=== PATIENT | male | born 1955 | race Caucasian/White ===

== ENCOUNTER 2018-03-23 14:33 | Emergency (ER) | payer OTHER ==
[~2018-03-23] VITALS: Ht 172.7 cm; Wt 90.7 kg
[~2018-03-23 14:33] MED LIST: CEPH500 PO; CIPR500 PO; HYDACE5 PO; IBUP400 PO; METF500 PO; OXYACE7.5T PO; PENVK500 PO; RXOXYACE PO; TRAM50 PO
[2018-03-23 16:01] LABS: BASOPHILS ABSOLUTE AUTO 0.04 K/mm3 (0.00-0.23); BASOPHILS PERCENT AUTO 1 % (0-2); EOSINOPHILS ABSOLUTE AUTO 0.18 K/mm3 (0.00-0.68); EOSINOPHILS PERCENT AUTO 3 % (0-6); Hematocrit 46.6 % (37.0-53.0); Hemoglobin 15.3 g/dL (13.5-17.5); IMMATURE GRAN ABSOLUTE AUTO 0.03 K/mm3 (0.00-0.10); IMMATURE GRAN PERCENT AUTO 0 % (0-1); LYMPHOCYTES ABSOLUTE AUTO 2.31 K/mm3 (0.84-5.20); LYMPHOCYTES PERCENT AUTO 33 % (21-46); MONOCYTES PERCENT AUTO 10 % (4-13); Mean Corpuscular HGB 30.4 pg (26.0-34.0); Mean Corpuscular HGB Conc 32.8 g/dL (31.5-36.5); Mean Corpuscular Volume 93 fL (80-100); Mean Platelet Volume 9.4 fL (9.1-12.4); NEUTROPHILS ABSOLUTE AUTO 3.66 K/mm3 (1.96-9.15); NEUTROPHILS PERCENT AUTO 53 % (41-73); Platelet Count 181 K/mm3 (150-400); RDW Coefficient Variation 12.6 % (11.7-14.2); Red Blood Cell Count 5.03 M/mm3 (4.30-5.90); White Blood Cell Count 6.92 K/mm3 (4.00-11.30)
[2018-03-23 16:20] LABS: Bun/Creatinine Ratio 14.4 (12.0-20.0); Calcium, Blood 8.8 mg/dL (8.5-10.1); Creatinine, Blood 1.32 mg/dL (0.60-1.20); Potassium, Blood 3.8 mmol/L (3.5-5.5)
[2018-03-23] MEDS ORDERED: Lopressor 50 mg50 MG PO (17:17)
[2018-03-23] MEDS ORDERED: Cleocin HCl300 MG PO (17:17)
== END 2018-03-23 17:24 | disposition home or self-care (01) ==
LOC: ER 14:33
PROVIDERS: Physician Assistant
DX: K02.9 Dental caries, unspecified (principal); I10 Essential (primary) hypertension; F10.10 Alcohol abuse, uncomplicated; F17.210 Nicotine dependence, cigarettes, uncomplicated
CPT/HCPCS: 36415; 70491; 80048; 85025; 96374; 96375; 99284-25; J1200; J2930; Q9967

== ENCOUNTER 2018-08-25 01:39 | Emergency (ER) | payer OTHER ==
[~2018-08-25] VITALS: Ht 172.7 cm; Wt 88.5 kg
[~2018-08-25 01:39] MED LIST changes: +Cleocin HCl300 MG PO; +Lopressor 50 mg50 MG PO
[2018-08-25] MEDS ORDERED: CEPH500 PO (02:38)
[2018-08-25] MEDS ORDERED: Bactrim Ds Tab1 EACH PO (02:38)
== END 2018-08-25 03:25 | disposition home or self-care (01) ==
LOC: ER 01:39
DX: L03.115 Cellulitis of right lower limb (principal); Z79.899 Other long term (current) drug therapy; F17.210 Nicotine dependence, cigarettes, uncomplicated
CPT/HCPCS: 99281; A9270

== ENCOUNTER 2019-01-25 09:25 | Inpatient (IN) | payer OTHER ==
[~2019-01-25] VITALS: Ht 172.7 cm; Wt 69.1 kg
[~2019-01-25 09:25] MED LIST changes: +Bactrim Ds Tab1 EACH PO
[2019-01-25 10:30] LABS: Base Excess Venous 0.8 mmol/L; Bicarbonate Venous 23.8 mmol/L (24.0-30.0); PCO2 Venous 50.4 mmHg (38-42); PO2 Venous 43.1 mmHg (38-42); pH Blood Venous 7.33 (7.34-7.37)
[2019-01-25 11:36] LABS: International Normalized Ratio 1.15
--- NOTE | 2019-01-25 11:40 | NUR ---
Echocardiogram completed.
[2019-01-25 13:03] LABS: Source, Urine Catheter
[2019-01-25 13:15] LABS: Bilirubin, Urine Neg (Neg); Blood, Urine Neg (Neg); Glucose Qualitative, Urine 3+ (Neg); Ketones, Urine Neg (Neg); Leukocyte Esterase, Urine Neg (Neg); Nitrite, Urine Neg (Neg); Protein, Urine 3+ (Neg); Specific Gravity, Urine 1.025 (1.003-1.022); Urobilinogen, Urine NORM (Normal)
[2019-01-25 13:31] LABS: U Amphetamine Screen DETECTED; U Barbituate Screen Not Detected; U Benzodiazapine Screen Not Detected; U Buprenorphine Screen Not Detected; U Cannabinoids Screen Not Detected; U Cocaine Screen Not Detected; U Methadone Screen Not Detected; U Methamphetamine Screen DETECTED; U Opiates Screen Not Detected; U Oxycodone Screen Not Detected; U Phencyclidine Screen Not Detected; U Propoxyphene Screen Not Detected
[2019-01-25 13:36] LABS: Albumin, Blood 3.3 g/dL (3.4-5.0); Albumin/Globulin Ratio 1.1 (0.8-1.8); Bilirubin, Total 0.8 mg/dL (0.1-1.0); Bun/Creatinine Ratio 26.1 (12.0-20.0); Calcium, Blood 8.4 mg/dL (8.5-10.1); Creatinine, Blood 1.42 mg/dL (0.60-1.20); Globulin, Blood 2.9 g/dL (2.2-4.0); Potassium, Blood 4.9 mmol/L (3.5-5.5); Total Protein, Blood 6.2 g/dL (6.4-8.2)
[2019-01-25 13:39] LABS: Hematocrit 42.6 % (37.0-53.0); Hemoglobin 13.5 g/dL (13.5-17.5); Mean Corpuscular HGB 29.7 pg (26.0-34.0); Mean Corpuscular HGB Conc 31.7 g/dL (31.5-36.5); Mean Corpuscular Volume 94 fL (80-100); Mean Platelet Volume 10.9 fL (9.1-12.4); Platelet Count 170 K/mm3 (150-400); RDW Coefficient Variation 13.8 % (11.7-14.2); RDW Standard Deviation 46.1 fL (35.1-46.3); Red Blood Cell Count 4.54 M/mm3 (4.30-5.90); White Blood Cell Count 6.57 K/mm3 (4.00-11.30)
[2019-01-25 14:04] LABS: Appearance, Urine Hazy (Clear); Color, Urine Yellow (P-Yellow)
[2019-01-25 14:05] LABS: Amorphous Heavy (0-Heavy); Bacteria Few /hpf; Red Blood Cells, Urine 0-2 /hpf (0-2); Squamous Epithelial Cells Not Seen /hpf (Few); White Blood Cells, Urine 0-2 /hpf (0-5)
--- NOTE | 2019-01-25 14:56 | NUR ---
ADMIT PT REPORT RECEIVED. PT ARRIVED AWAKE AND ALERT. SON AT BEDSIDE. PT SOB, WEAK VOICE. DR MANCUSO HERE UPON ARRIVAL TO PCU 9. BARRETO PLACED AND BUMEX GIVEN PER DR MANCUSO DIRECTION. ALL OTHER MEDICATIONS TO BE HELD PER DIRECTION. CONTINUE POT.
--- NOTE | 2019-01-25 15:42 | NUR ---
POST ANGOGRAM PT RETURNED FROM [facility]. PT AWKAE AND ALERT. SR. SON AT BEDSIDE. RIGTH RADIAL TR BAND CD&I. CAP REFILL BRISK TO RIGHT FINGERS. PHLETH WAVEFORM INTACT. CONTINUE POT.
--- NOTE | 2019-01-25 16:02 | NUR ---
tr band site Right radial site cd&i. pheth waveform wnl. Right tatiana venius ite cd&i. No hematoma, swelling or tenderness noted. pp2+. Sons at bedside helping to remind pt not to lift his head. Placed a flat sheet over pt right knee and tuked under the mattress to remind pt to keep leg straight. Continue pot.
--- NOTE | 2019-01-25 17:27 | NUR ---
TR BAND REMOVED 2ML OF AIR FROM RIGHT RADIAL TR BAND. NO BLEEDING, SWELLING OR HEMATOMA NOTED. RIGHT GROINS ITE CD&I. CONTINUE POT.
--- NOTE | 2019-01-25 18:25 | NUR ---
TR BAND REMOVED 2ML AIR FROM BAND. 4ML TOTAL. SITE CD&I. DBP SLOWLY DECREASING. PT ALERT. TALKING CONSTANTLY WITH KIDS. WANTS CARROT JUICE. RIGHT GROIN SITE CD&I. PP 1+. CONTINUE POT.
--- NOTE | 2019-01-25 19:53 | NUR ---
ASSUMED CARE AT 1915. PATIENT ALERT . PATIENT BLOOD PRESSURE MONITORED. DENIES PAIN AT THE TIME. WILL CONTINUE TO MONITOR.
--- NOTE | 2019-01-25 20:30 | NUR ---
TR BAND SEE HEART FLOWSHEET
--- NOTE | 2019-01-26 01:45 | NUR ---
TR BAND DEFLATED
--- NOTE | 2019-01-26 02:45 | NUR ---
TR BAND REMOVED, CLEAN DRY INTACT. CLEANED WITH CHLORAPREP, SITE STARTED TO WEEP, ANDI DRESSING PLACE AT 0245. MUST BE REMOVED WITH 24HOUR OF PLACEMENT.
[2019-01-26 04:05] LABS: BASOPHILS ABSOLUTE AUTO 0.04 K/mm3 (0.00-0.23); BASOPHILS PERCENT AUTO 1 % (0-2); EOSINOPHILS ABSOLUTE AUTO 0.18 K/mm3 (0.00-0.68); EOSINOPHILS PERCENT AUTO 2 % (0-6); Hematocrit 41.9 % (37.0-53.0); Hemoglobin 13.5 g/dL (13.5-17.5); IMMATURE GRAN ABSOLUTE AUTO 0.03 K/mm3 (0.00-0.10); IMMATURE GRAN PERCENT AUTO 0 % (0-1); LYMPHOCYTES ABSOLUTE AUTO 1.65 K/mm3 (0.84-5.20); LYMPHOCYTES PERCENT AUTO 21 % (21-46); MONOCYTES PERCENT AUTO 13 % (4-13); Mean Corpuscular HGB 29.9 pg (26.0-34.0); Mean Corpuscular HGB Conc 32.2 g/dL (31.5-36.5); Mean Corpuscular Volume 93 fL (80-100); Mean Platelet Volume 10.2 fL (9.1-12.4); NEUTROPHILS ABSOLUTE AUTO 5.12 K/mm3 (1.96-9.15); NEUTROPHILS PERCENT AUTO 64 % (41-73); Platelet Count 175 K/mm3 (150-400); RDW Coefficient Variation 13.6 % (11.7-14.2); RDW Standard Deviation 45.7 fL (35.1-46.3); Red Blood Cell Count 4.52 M/mm3 (4.30-5.90); White Blood Cell Count 8.02 K/mm3 (4.00-11.30)
[2019-01-26 04:28] LABS: LDL/HDL RATIO 2.7; Very Low Density Lipoprot Chol 26 mg/dL (6-32)
[2019-01-26 04:29] LABS: Alanine Aminotransfer (ALT/SGP 51 U/L (12-78); Albumin, Blood 3.2 g/dL (3.4-5.0); Albumin/Globulin Ratio 1.1 (0.8-1.8); Alk Phos 108 U/L (50-136); Anion Gap 9 mmol/L (6-16); Aspartate Aminotrans (AST/SGOT 23 U/L (12-37); Bilirubin, Total 0.9 mg/dL (0.1-1.0); Blood Urea Nitrogen 35 mg/dL (8-24); Bun/Creatinine Ratio 23.6 (12.0-20.0); CHOL/HDL RATIO 4.6; CO2, Blood 28 mmol/L (21-32); Calcium, Blood 8.6 mg/dL (8.5-10.1); Chloride, Blood 99 mmol/L (98-108); Cholesterol 137 mg/dL (50-200); Creatinine, Blood 1.48 mg/dL (0.60-1.20); Globulin, Blood 2.8 g/dL (2.2-4.0); Glomerular Filtration Rate 51 (60-); Glucose, Blood 272 mg/dL (70-99); HDL Cholesterol 30 mg/dL (>39); Low Density Lipoprotein Chol 81 mg/dL (0-110); Potassium, Blood 4.6 mmol/L (3.5-5.5); Sodium, Blood 136 mmol/L (136-145); Triglycerides 130 mg/dL (30-160)
--- NOTE | 2019-01-26 06:04 | NUR ---
PATIENT SLIGHT AGITATED AND ANXIOUS PRIOR TO BEDTIME. REQUESTED SOMETHING TO HELP SLEEP. PATIENT HAVING DIFFICULT STAYING ASLEEP, WAKES UP CONFUSED, TRIED TO GET OUT OF BED TO URINATE, PT FORGOT HE HAD BARRETO INSERTED. REDIRECTED AND REMINDED PATIENT LINES AND TUBES AND THE NEED FOR THEM. PT STATED HE USUALLY DRINKS BEFORE GOING TO BED.. TR BAND REMOVED AND GROIN SITE CLEAR DRY INTACT. PT PRESENTS WITH SINGS OF SLEEP APNEA, PROVIDOR CALLED, O2 VIA NC AND NOCTURNAL O2 MONITOR IN PLACE. PT HAS HIGH URINE OUTPUT. NO OTHER ACUTE EVENTS WILL CONTINUE TO MONITOR.
--- NOTE | 2019-01-26 14:24 | NUR ---
Pt visit this afternoon. Pt resting in bed upon arrival. Pt's son at bedside. Pt is A&O and denies pain at this time. He does report some discomfort from occasional cramping in the legs. Pt denies dyspnea and axiety at this time. Listened as Pt discusses events in life leading up to his recent abuse of drugs and alcohol. Pt tearful at times during visit. Listened as Pt expresses frustrations towards his choices in life. Offered emotional support. Pt reports plan to turn his life arround. Pt reports no concerns at this time. Spoke with bedside RN Vernon and discussed case. Spoke with Dr Montano prior to Pt visit. Dr Montano reports Pt would benefit from simple therapeutic visits for now. Palliative Care will remain available.
--- NOTE | 2019-01-26 18:15 | NUR ---
SUMMARY NO ACUTE CHANGES NOTED THROUGH THE SHIFT. PT REMAINS A&O X4, CONTINUES TO DENY SOB/CP, VSS, RESP UNLABORED, ON ROOM AIR, O2 SATS >93%. CONTINUOS PULSE OX IN PLACE. PT'S SPEECH REMAINS GARBLED. FAMILY HAS BEEN AT THE BEDSIDE THROUGH THE DAY, THEY ASSIST WITH CARE. BARRETO REMAINS PATENT, DRAINING CLEAR YELLOW URINE. SINUS/S.TACH THROUGH THE DAY. RIGHT RADIAL/GROIN SITES WNL. CALL LIGHT IN REACH, WCJENNIFER AND REPORT TO NICHOLAS CURTIS.
--- NOTE | 2019-01-27 00:55 | NUR ---
ASSUMED CARE APPROXIMATELY 1900; PT ALERT; FAMILY AND VISITORS AT BEDSIDE; VSS; PT ON RA; O2 SATS >94; DENIES CHEST PAIN; DENIES NEEDS; RADIAL AND GROIN OP SITES WNL; PT TAKES GOWN OFF AND SEEMS SLIGHTLY JITTERY; BARRETO DRAINING YELLOW URINE; CALL LIGHT IN REACH; BED IN LOWEST POSITION; WILL CONTINUE TO MONITOR CLOSELY
[2019-01-27 03:54] LABS: BASOPHILS ABSOLUTE AUTO 0.04 K/mm3 (0.00-0.23); BASOPHILS PERCENT AUTO 1 % (0-2); EOSINOPHILS ABSOLUTE AUTO 0.17 K/mm3 (0.00-0.68); EOSINOPHILS PERCENT AUTO 2 % (0-6); Hematocrit 44.2 % (37.0-53.0); Hemoglobin 14.7 g/dL (13.5-17.5); IMMATURE GRAN ABSOLUTE AUTO 0.04 K/mm3 (0.00-0.10); IMMATURE GRAN PERCENT AUTO 1 % (0-1); LYMPHOCYTES ABSOLUTE AUTO 1.95 K/mm3 (0.84-5.20); LYMPHOCYTES PERCENT AUTO 23 % (21-46); MONOCYTES ABSOLUTE AUTO 1.25 K/mm3 (0.16-1.47); MONOCYTES PERCENT AUTO 15 % (4-13); Mean Corpuscular HGB 29.5 pg (26.0-34.0); Mean Corpuscular HGB Conc 33.3 g/dL (31.5-36.5); Mean Corpuscular Volume 89 fL (80-100); Mean Platelet Volume 10.3 fL (9.1-12.4); NEUTROPHILS ABSOLUTE AUTO 5.01 K/mm3 (1.96-9.15); NEUTROPHILS PERCENT AUTO 59 % (41-73); Platelet Count 198 K/mm3 (150-400); RDW Coefficient Variation 13.5 % (11.7-14.2); RDW Standard Deviation 43.3 fL (35.1-46.3); Red Blood Cell Count 4.99 M/mm3 (4.30-5.90); White Blood Cell Count 8.46 K/mm3 (4.00-11.30)
[2019-01-27 04:16] LABS: Albumin/Globulin Ratio 0.9 (0.8-1.8); Bilirubin, Total 0.9 mg/dL (0.1-1.0); Calcium, Blood 8.6 mg/dL (8.5-10.1); Creatinine, Blood 1.59 mg/dL (0.60-1.20); Globulin, Blood 3.4 g/dL (2.2-4.0); Magnesium, Blood 2.1 mg/dL (1.6-2.4); Potassium, Blood 4.1 mmol/L (3.5-5.5); Total Protein, Blood 6.4 g/dL (6.4-8.2)
--- NOTE | 2019-01-27 05:45 | NUR ---
SHIFT SUMMARY PT MOANED AND TURNED IN BED ON AND OFF THROUGH NIGHT; EAR PLUGS AND SLEEP MASK OFFERED AND PT TRIED BOTH; PT DID NOT WANT TV TURNED OFF; SLEPT WELL BETWEEN 0400 AND 0600; PT DENIES CHEST PAIN; DENIES HEADACHE; DENIES TREMORS; HOWEVER PT SEEMS JITTERY; REMOVED GOWN AND BLANKETS; FIGETS W/ BLANKET ENDS; COMPLIANT W/ CARE; CALL LIGHT IN REACH; BED IN LOWEST POSITION; WILL CONTINUE TO MONITOR UNTIL HAND OFF TO DAY SHIFT RN
--- NOTE | 2019-01-27 05:59 | NUR ---
UPDATE PT HAVING RUN OF SINUS TACH W/ HR UP TO 140'S PER WHOLESALER; PT SLEEPING W/ THIS RATE AND ASSYMPTOMATIC; WHEN PT ASKED HE DENIES NOTICING ANY CHANGE
--- NOTE | 2019-01-27 08:30 | NUR ---
Assumed Care Assumed care of pt at approx 0700; pt sitting in bed, pulling on lines and taking gown off. Pt difficult to redirect. CIWA of 8; 1mg ativan given per orders and pt resting comfortably. Dr. Montano in this AM at bedside, status changed to medical. Pt planned to have life vest fitting friday and possible D/C friday. Pt's son at bedside on and off this day; aware of updated plan of care. See shift assessment for detailed systems assessment. Pt with xiao, patent and draining. Cath care performed this AM. Pt is alert and oriented, able to use call light to make needs known; takes pills whole with water. Pt mentions to this RN "I want to go home" When asked to elaborate on request, pt states "I want to see my dog". Pt's son at bedside at this time, pt's son encouraging pt to stay; pt's son informed that he can bring in pt's dog for pt's comfort. Pt agreeable to stay and cooperative with plan of care No acute concerns to note at this time
--- NOTE | 2019-01-27 12:04 | NUR ---
MARY LOU Gross 1200 01/27/[address] SEN. WILL MONITOR FOR OUTPUT AND RETENTION.
--- NOTE | 2019-01-27 17:34 | NUR ---
Upon rounding, pt difficult to arrouse. breathing remains at 18 bpm, shallow but unchanged from initial assessment. Pt had visitor in this afternoon enouraging pt to stay and cooperate with care. fourth mate notified and MD called and made aware of change in status. Pt to be given narcan per MD orders. Holding off on transferring pt at this time. Nursing concrete paving supervisor aware and room 350 RN aware.
--- NOTE | 2019-01-27 17:54 | NUR ---
NARCAN given per orders. pt with improved alertness, sitting in bed, eating dinner.
--- NOTE | 2019-01-27 18:24 | NUR ---
Shift Summary Pt with events at noted in previous notes. Pt currently sitting in room, visiting with son and friends - room fully visualized and to remain open. pt is SBA, xiao d/c'd and pt voided. Pt denies pain, is currently alert and oriented, eating dinner post narcan administration per orders. Pt to transfer to room 350; awaiting med RN to call back at this time for report. With exception to sudden change in status as documented around 1700; no further concerns to note this shift. Pt required only 1 mg ativan today, PO librium scheduled has adequately covered pt's CIWA. Will continue to monitor.
--- NOTE | 2019-01-27 18:46 | NUR ---
Pt to be transferred to 350, all pt belongings with pt at this time.
[2019-01-28 05:56] LABS: BASOPHILS ABSOLUTE AUTO 0.04 K/mm3 (0.00-0.23); BASOPHILS PERCENT AUTO 1 % (0-2); EOSINOPHILS ABSOLUTE AUTO 0.21 K/mm3 (0.00-0.68); EOSINOPHILS PERCENT AUTO 3 % (0-6); Hematocrit 45.6 % (37.0-53.0); Hemoglobin 14.9 g/dL (13.5-17.5); IMMATURE GRAN ABSOLUTE AUTO 0.05 K/mm3 (0.00-0.10); IMMATURE GRAN PERCENT AUTO 1 % (0-1); LYMPHOCYTES ABSOLUTE AUTO 1.99 K/mm3 (0.84-5.20); LYMPHOCYTES PERCENT AUTO 25 % (21-46); MONOCYTES ABSOLUTE AUTO 1.14 K/mm3 (0.16-1.47); MONOCYTES PERCENT AUTO 14 % (4-13); Mean Corpuscular HGB Conc 32.7 g/dL (31.5-36.5); Mean Corpuscular Volume 89 fL (80-100); Mean Platelet Volume 10.1 fL (9.1-12.4); NEUTROPHILS ABSOLUTE AUTO 4.65 K/mm3 (1.96-9.15); NEUTROPHILS PERCENT AUTO 58 % (41-73); Platelet Count 200 K/mm3 (150-400); RDW Coefficient Variation 13.5 % (11.7-14.2); RDW Standard Deviation 43.9 fL (35.1-46.3); Red Blood Cell Count 5.14 M/mm3 (4.30-5.90); White Blood Cell Count 8.08 K/mm3 (4.00-11.30)
[2019-01-28 06:18] LABS: Albumin, Blood 2.8 g/dL (3.4-5.0); Albumin/Globulin Ratio 0.8 (0.8-1.8); Bilirubin, Total 0.7 mg/dL (0.1-1.0); Bun/Creatinine Ratio 22.2 (12.0-20.0); Calcium, Blood 8.6 mg/dL (8.5-10.1); Creatinine, Blood 1.85 mg/dL (0.60-1.20); Globulin, Blood 3.7 g/dL (2.2-4.0); Magnesium, Blood 2.2 mg/dL (1.6-2.4); Potassium, Blood 5.1 mmol/L (3.5-5.5); Total Protein, Blood 6.5 g/dL (6.4-8.2)
--- NOTE | 2019-01-28 06:27 | NUR ---
Shift Summary Patient slept well overnight. Son slept overnight and did help the patient eat a salad. Discussed limiting sugar and sodium in any food or beverages that are brought in for the patient. The patient did have some urinary urgency overnight, and didn't make it all the way to the bedside commode twice.
--- NOTE | 2019-01-28 18:51 | NUR ---
SHIFT SUMMARY AI ORIENTED TO PLACE AND YEAR, BUT NOT SITUATION. ALERT IN MORNING, VERY LETHARGIC AND DIFFICULT TO ROUSE FOR A CONVERSATION IN THE LATE MORNING. WOKE UP ENOUGH TO EAT LUNCH AND THEN GOT MORE LETHARGIC IN EARLY AFTERNOON. TALKED WITH SON, SOUNDS LIKE PT IS PRIMARY CAREGIVER FOR BED BOUND GIRLFRIEND AT HOME. PT IS INCONTINENT, NEEDS ASSISTANCE TO WALK, NOT ABLE TO STAY AWAKE TO DISCUSS INSULIN OR DEALING WITH DM AT HOME, HOW HE COOKS, ETC. GOES THROUGH PERIODS OF LETHARGY. PT EVAL DONE. OT TO BE DONE TOMORROW. LIFE VEST REP KATHI ROMO CAME WITH CHU, PH [phone].
--- NOTE | 2019-01-29 02:40 | NUR ---
PT SLIGHTLY ANXIOUS UNABLE TO BE REDIRECTED; ATIVAN 2MG IVP GIVEN, PT ON CAMERA AT THIS TIME WITH BED ALARM APPLIED.
--- NOTE | 2019-01-29 03:44 | NUR ---
PT SLIGHTLY ANXIOUS; BLADDER SCANNED FOR 54ML; FREQUENT REDIRECTION REQUIRED BY STAFF.
--- NOTE | 2019-01-29 04:17 | NUR ---
SHIFT SUMMARY: 63 Y/O MALE RESTED COMFORTABLY 3/4 OF SHIFT, OCCASIONAL ANXIOUS NOTED WITH ATIVAN 2MG IVP X 1 GIVEN WITH AFFECT NOTED; PT REQUIRES FREQUENT REDIRECTION AND ASSESSMENT BY NURSING STAFF; PTS RIGHT GROIN AND RIGHT WRIST SITES ARE OPEN TO AIR (DRESSING WERE SATURATED BY WATER AFTER SHOWERS EARLIER ON DAY SHIFT, THUS THIS NURSE REMOVED DRESSINGS) WITH SURROUNDING SKIN RIGHT GROIN BRUISED WITH NO HEMATOMA; ALERT TO PERSON ONLY, ABLE TO FOLLOW VERY SIMPLE VERBAL COMMANDS; PT WAS ABLE TO STAND, PIVOT AND TRANSFER BSC TO [facility] X 1 STANDBY ASSIST; PT HAS VERY POOR BALANCE; BED ALARM APPLIED, BED LOW POSITION WITH CALL LIGHT AT SIDE.
[2019-01-29 06:39] LABS: Bun/Creatinine Ratio 24.8 (12.0-20.0); Calcium, Blood 8.7 mg/dL (8.5-10.1); Creatinine, Blood 1.65 mg/dL (0.60-1.20); Magnesium, Blood 2.4 mg/dL (1.6-2.4); Potassium, Blood 4.4 mmol/L (3.5-5.5)
--- NOTE | 2019-01-29 07:22 | NUR ---
ASSUMED CARE OF PT- BEDSIDE REPORT COMPLETED WITH NIGHT RN HARMONY. PER REPORT PT HAS BECOME INCREASINGLY AGGITATED TOWARD THE END OF THE SHIFT. PT REMOVED TELE THREE TIMES IN THE LAST 25 MINUTES OF THE SHODER FILLER AND ONCE AFTER SHIFT CHANGE WAS COMPLETED. PER REPORT PT PULLED IV OUT, NEW 20G IV IN THE RIGHT FOREARM. CIWA SCORE IS A 12 AT CHANGE OF SHIFT. PT SEEME TO BE SLEEPING AND CALM, THEN HAS AN EPISODE OF AGGITATION FOR A MINUTE OR SO THEN RELAXES BACK TO SLEEP. WILL CALL PT FAMILY TO COME SIT WITH HIM IF POSSIBLE.
--- NOTE | 2019-01-29 10:43 | NUR ---
SPOKE TO DR MORALES ON NORMAL ROUNDS- PT RECIEVED METOPROLOL BUT NO OTHER PO MEDICATIONS. PT WAS BARELY ABLE TO SWALLOW THAT PILL HAD TO BE WOKE TWICE IN THE PROCESS OF TAKING THE PILL. PT HAD TO RECIEVE VERY SPECIFIC INSTRUCTIONS TO SWALLOW THE PILL. THEN HE WENT BACK TO SLEEP.
--- NOTE | 2019-01-29 12:40 | NUR ---
RECIEVED A CALL FROM TELE- PT HR HAS TOUCHED THE 150'S. PT HAS BEEN HAVING OCCASSIONAL TACHYCARDIA T/O HIS STAY HERE AND DR IS AWARE. SPOKE TO DR MORALES AND SHE ORDERED IV DIGOXIN. PT HR SUSTAINED IN THE 120-140 RANGE FOR 2 MINUTES THEN DROPPED BACK TO 90'S. CALLED DR MORALES. IV DIGOXIN NOT GIVEN DR AWARE PT SBP 98 AT THIS TIME. PLACED PT ON 2L O2 VIA NC D/T SATS 88%.
[2019-01-29 14:55] LABS: PO2 Arterial 59.9 mmHg (80-100); pH Blood Arterial 7.49 (7.35-7.45)
--- NOTE | 2019-01-29 15:12 | NUR ---
CALLED DR MORALES- 1430 PT IS HAVING APNEIC PERIODS LASTING UP TO 45 SECONDS. RT IN THE ROOM AT THE BEDSIDE. PT PLACED ON 2L NC EARLIER, NOW ON CONT BI-OX. PT REQUIRED STERNAL RUB TO WAKE FOR TRANSFER TO [facility] FOR HEAD CT. RT CONCERN WITH CARDIAC INVOLVEMENT (PT HAS BEEN HAVING TACHYCARDIA EPISODES ON AND OFF) PT MAY NEED A NON-INVASIVE VENT. THE APNEIC PERIODS DO NOT APPEAR TO BE CAUSED BY OBSTRUCTION PER RT AND NURSING STAFF. REQUEST TRANSFER TO PCU FOR INCREASED APNEA POSSIBLY REQUIREING MECHANICAL INTERVENTION. NEW ORDER RECIEVED FOR ABG. RT TOM AT THE BEDSIDE AND BRISEIDA ABG. CALLED DR RIVERA WITH ABG RESULT. PT TO STAY ON MEDICAL FLOOR ON 2L O2, CONT BIOX AND TELE. DR MORALES WILL DC SCHEDULED LIBRIUM. CALLED TELE PT HAS HAD NO FURTHER EPISODES OF TACHYCARDIA SINCE 1330 PER EMPLOYEE RELATIONS REPRESENTATIVE ALONDRA. WILL CTM.
--- NOTE | 2019-01-29 17:40 | NUR ---
SHIFT SUMMARY- PT ALLERT TO SELF ONLY. PT HAD SOME ANXIETY EARLIER THIS SHIFT AND WAS MEDICATED WITH PO LYBRIUM (SCHEDULED). AFTER THAT THE PT RELAXED AND WENT TO SLEEP APPEARED TO BE COMFORTABLE T/O THE DAY. PT HAD SOME APNEIC PERIODS (SEE PREVIOUS NOTES FOR DETAILS. PT DECIDED THIS EVENING THAT HE WANTED TO GO HOME AND IS NOW TRYING TO GET OUT OF BED, CALLED INVENTORY CONTROL ANALYST AND HAD HIM PLACED ON THE MONITORS FOR FALL RISK. PT STILL CONFUSED STILL HAVING PERIODS OF EXTENDED APNEA WHEN SLEEPING.
--- NOTE | 2019-01-29 20:55 | NUR ---
RESTING COMFORTABLY; SON AT SIDE.
--- NOTE | 2019-01-30 04:34 | NUR ---
SHIFT SUMMARY: 63 Y/O MALE RESTED COMFORTABLY FIRST 1/2 SHIFT; PT DID BECOME SLIGHTLY AGITATED WITH NURSING STAFF UNABLE TO REDIRECT (ATTEMPTING CLIMB OOB AND CONTINUOUSLY REMOVING TELEMETRY)--ATIVAN 2MG IVP GIVEN WITH PATIENT ABLE TO CALM DOWN; PT ALERT TO PERSON ONLY AND UNABLE TO FOLLOW SIMPLE VERBAL COMMANDS; SPEECH GARBLED; PT WEARING O2 AT 2L/M PER NASAL CANNULA AND CONTINUOUS PULSE OXIMETER AT 93%; TELEMETRY REFLECTS NSR WITH HEART RATE 92; DENIES PAIN OR NAUSEA; BED ALARM APPLIED, BED LOW POSITION WITH CALL LIGHT AT SIDE.
[2019-01-30 05:22] LABS: BASOPHILS ABSOLUTE AUTO 0.05 K/mm3 (0.00-0.23); BASOPHILS PERCENT AUTO 1 % (0-2); EOSINOPHILS ABSOLUTE AUTO 0.29 K/mm3 (0.00-0.68); EOSINOPHILS PERCENT AUTO 3 % (0-6); Hematocrit 49.5 % (37.0-53.0); Hemoglobin 15.5 g/dL (13.5-17.5); IMMATURE GRAN ABSOLUTE AUTO 0.04 K/mm3 (0.00-0.10); IMMATURE GRAN PERCENT AUTO 0 % (0-1); LYMPHOCYTES ABSOLUTE AUTO 2.12 K/mm3 (0.84-5.20); LYMPHOCYTES PERCENT AUTO 23 % (21-46); MONOCYTES PERCENT AUTO 18 % (4-13); Mean Corpuscular HGB 28.9 pg (26.0-34.0); Mean Corpuscular HGB Conc 31.3 g/dL (31.5-36.5); NEUTROPHILS ABSOLUTE AUTO 5.01 K/mm3 (1.96-9.15); NEUTROPHILS PERCENT AUTO 55 % (41-73); Platelet Count 197 K/mm3 (150-400); RDW Coefficient Variation 13.3 % (11.7-14.2); RDW Standard Deviation 45.3 fL (35.1-46.3); Red Blood Cell Count 5.37 M/mm3 (4.30-5.90); White Blood Cell Count 9.11 K/mm3 (4.00-11.30)
[2019-01-30 05:31] LABS: Mean Corpuscular Volume 92 fL (80-100)
[2019-01-30 05:58] LABS: Albumin, Blood 2.8 g/dL (3.4-5.0); Albumin/Globulin Ratio 0.6 (0.8-1.8); Bilirubin, Total 0.7 mg/dL (0.1-1.0); Bun/Creatinine Ratio 26.5 (12.0-20.0); Calcium, Blood 8.7 mg/dL (8.5-10.1); Creatinine, Blood 1.62 mg/dL (0.60-1.20); Globulin, Blood 4.4 g/dL (2.2-4.0); Magnesium, Blood 2.3 mg/dL (1.6-2.4); Potassium, Blood 4.7 mmol/L (3.5-5.5); Total Protein, Blood 7.2 g/dL (6.4-8.2)
--- NOTE | 2019-01-30 07:00 | NUR ---
ASSUMED CARE OF PT- REPORT COMPLETED WITH NIGHT RN HARMONY. PT NOT ORIENTED AT ALL. PER REPORT PT HAD A VEWS SCORE OF 12 AROUND 0230 AND WAS MEDICATED WITH IV ATIVAN. PT NOT HAVING EPISODES OF TACHYCARDIA BUT STILL HAVING SHALLOW FAST RESPIRATIONS WITH PAUSES.
--- NOTE | 2019-01-30 08:50 | NUR ---
MONITOR CALLED AND PT TRYING TO GET OUT OF BED BECOMING MORE AGGITATED. WILL ASSESS AND DO CIWA.
--- NOTE | 2019-01-30 09:15 | NUR ---
CIWA SCORE 7- PT CHANGED AND REPOSITIONED AND IS NOW UNRESPONSIVE DOES NOT WAKE TO STERNAL RUB. PUPILS FIXED AND PINPOINT. RESP RATE FAST AND SHALLOW. WILL CALL DR MORALES.
--- NOTE | 2019-01-30 09:30 | NUR ---
CALLED DR MORALES AND RECIEVED ORDER FOR PT TRANSFER TO PCU FOR CLOSER MONITORING. PT REMAINS A FULL CODE AND IS STILL HAVING IRRATIC BREATHING AND DOES NOT WAKE TO STERNAL RUB DOES NOT LOCALIZE TO PAIN. GLASSGOW COMA SCALE SCORE OF 7. WAITING FOR BED ASSIGNMENT.
--- NOTE | 2019-01-30 10:55 | NUR ---
PT TRANSFERRED FROM MEDICAL FLOOR. REPORT RECIEVED FROM LANA CURTIS. LANA CALLED PT'S SON TO LET HIM KNOW OF TRANSFER. PT EXHIBITING PERIODS OF TACHYCARDIA VS SHALLOW BREATHING. UNRESPONSIVE EXCEPT TO NOXIOUX STIMULI BUT THHEN GROANS AND MOVES ALL EXTREMITIES. DR MORALES WAS AT BEDSIDE, AWARE PT DID NOT RECIEVE ORAL MEDS THIS AM.
--- NOTE | 2019-01-30 11:00 | NUR ---
TRANSFER NOTE- PT TRANSFERED TO PCU 09. TELEPHONE REPORT GIVEN TO PEARL STRINGER TAMARA. RENE WEBER WAS CALLED AFTER TRANSFER WAS COMPLETED WITH AN UPDATE. PT STILL NOT RESPONDING TO VERBAL OR PHYSICAL STIMULUS.
--- NOTE | 2019-01-30 17:28 | NUR ---
SHIFT SUMMARY: PT HAS BEEN RESTING IN BED THIS SHIFT. OCCASIONALLY HAS KUSSMAUL RESPIRATIONS THAT DR PITTS FEELS IS NEURO RELATED. FAMILY HAS BEEN AT BEDSIDE THIS SHIFT. PT IS AWAKE AT THIS TIME EATING DINNER, AWAKE BUT CONFUSED. NO FURTHER CHANGES OR NEEDS THIS SHIFT.
--- NOTE | 2019-01-30 18:28 | NUR ---
2 MG ATIVAN GIVEN FOR CIWA 11 AND MRI TO BE DONE. MRI TRANSPORTER ARRIVED AND PT WAS STILL FIDGETING AND NOT FOLLOWING DIERECTION. CALL TO DR MORALES WHO STATES TO HOLD MRI TONIGHT AND REVIEW AGAIN TOMORROW. MRI AWARE
[2019-01-31 04:08] LABS: BASOPHILS ABSOLUTE AUTO 0.03 K/mm3 (0.00-0.23); BASOPHILS PERCENT AUTO 0 % (0-2); EOSINOPHILS PERCENT AUTO 3 % (0-6); Hematocrit 46.6 % (37.0-53.0); Hemoglobin 14.8 g/dL (13.5-17.5); IMMATURE GRAN ABSOLUTE AUTO 0.02 K/mm3 (0.00-0.10); IMMATURE GRAN PERCENT AUTO 0 % (0-1); LYMPHOCYTES ABSOLUTE AUTO 1.53 K/mm3 (0.84-5.20); LYMPHOCYTES PERCENT AUTO 21 % (21-46); MONOCYTES ABSOLUTE AUTO 1.44 K/mm3 (0.16-1.47); MONOCYTES PERCENT AUTO 20 % (4-13); Mean Corpuscular HGB Conc 31.8 g/dL (31.5-36.5); Mean Corpuscular Volume 91 fL (80-100); Mean Platelet Volume 10.1 fL (9.1-12.4); NEUTROPHILS PERCENT AUTO 55 % (41-73); Platelet Count 174 K/mm3 (150-400); RDW Coefficient Variation 13.1 % (11.7-14.2); RDW Standard Deviation 44.5 fL (35.1-46.3); Red Blood Cell Count 5.11 M/mm3 (4.30-5.90); White Blood Cell Count 7.22 K/mm3 (4.00-11.30)
[2019-01-31 04:35] LABS: Alanine Aminotransfer (ALT/SGP 100 U/L (12-78); Albumin, Blood 2.6 g/dL (3.4-5.0); Albumin/Globulin Ratio 0.6 (0.8-1.8); Alk Phos 144 U/L (50-136); Anion Gap 7 mmol/L (6-16); Aspartate Aminotrans (AST/SGOT 57 U/L (12-37); Bilirubin, Total 0.6 mg/dL (0.1-1.0); Blood Urea Nitrogen 47 mg/dL (8-24); Bun/Creatinine Ratio 37.3 (12.0-20.0); CO2, Blood 26 mmol/L (21-32); Chloride, Blood 102 mmol/L (98-108); Creatinine, Blood 1.26 mg/dL (0.60-1.20); Glomerular Filtration Rate >60 (60-); Glucose, Blood 191 mg/dL (70-99); Magnesium, Blood 2.3 mg/dL (1.6-2.4); Potassium, Blood 4.5 mmol/L (3.5-5.5); Sodium, Blood 135 mmol/L (136-145); Total Protein, Blood 6.6 g/dL (6.4-8.2)
--- NOTE | 2019-01-31 05:18 | NUR ---
SHIFT SUMMARY PT RESTLESS IN ROOM AT THIS TIME. PT CONTINUED TO CLIMB ON CIWA SCALES T/O NIGHT. PT REMAINED CONFUSED AND ALTERED T/O NIGHT. REQUIRING HIGHER DOSES OF ATIVAN PER EMAR. CIWA SCORES RANGED FROM 7-14 DURING SHIFT. PT CONTINUED TO ATTEMPT TO GET OUT OF BED, AND CONTINUED TO PULL AT LINES AND SP02 MONITOR. RESPIRATIONS CONTINUED TO FLUCUATE T/O NIGHT W/ APNIC PERIODS FOLLOWED BY LABORED HEAVY BREATHING. PT REMAINS ON 3L NC, BUT PULLS AT CANNULA CONSTANTLY. SATS BETWEEN 90-96% WHILE NC IN PLACE. DESATURATION NOTED WHEN PT REMOVES NC TO 86% W/ APNEA. PT INCONTINENT, ATTENDS IN PLACE REQUIRED CHANGING NEARLY EVERY HOUR. BED ALARM ON AND BSIDE RAILS UP FOR SAFETY. CALL LIGHT IS WITHIN REACH OF PT, PT UNABLE TO UTILIZE APPROPRIATLY.
[2019-01-31 06:07] LABS: HBSAG SCREEN Negative (Negative); HEP B CORE AB, TOT Negative (Negative); HEP C VIRUS AB <0.1 (0.0-0.9)
--- NOTE | 2019-01-31 07:30 | NUR ---
ASSUMED CARE: PT RESTING IN BED, BEGAN TO GET WRESTLESS WHICH APPEARS TO COINCIDE WITH NEED FOR ATTENDS CHANGE. RESPONDS TO PAIN BUT NOT SPEAKING TO STAFF, MOANS AND GROANS HEARD. PT NOTED TO HAVE IRREGULAR BREATHING PATTERN WITH SHALLOW RESPIRATIONS ALTERNATING WITH TACHYPNEA. BED ALARM ON
--- NOTE | 2019-01-31 08:41 | NUR ---
DISCUSSED PT WITH DR MORALES WHO SUGGESTS PREMEDICATING WITH HIGHER DOSE OF ATIVAN BEFORE MRI. PT CURRENTLY WRESTLESS IN BED BUT DROWSY AND NOT FOLLOWING DIRECTIONS. HOLDING TRAY FOR NOW AND DISCUSSED WITH DR MORALES THAT ORAL MEDS MAY NOT BE SAFE TO GIVE THIS AM.
[2019-01-31 10:06] LABS: HIV SCREEN 4TH GENERATION WRFX Non Reactive (Non Reactive)
--- NOTE | 2019-01-31 10:21 | NUR ---
PT VERY ANSY IN BED. ON ALL FOURS AT ONE POINT. MEDICATED WITH ATIVAN AND ZYPREXA PER DR MORALES SO THAT MRI CAN BE ATTEMPTED. STAFF SITTING AT BEDSIDE SUPERVISING AT THIS TIME.
--- NOTE | 2019-01-31 10:48 | NUR ---
PT TAKEN TO MRI AT THIS TIME. LIQUEFIER ACCOMPANYING.
--- NOTE | 2019-01-31 12:02 | NUR ---
DR MORALES MADE AWARE OF PT'S MRI RESULTS
--- NOTE | 2019-01-31 13:26 | NUR ---
PT'S SON ARRIVED, SITTING AT BEDSIDE. CALL TO DR MORALES SO SHE CAN GIVE THEM AN UPDATE. AWAITING RETURN CALL BACK
--- NOTE | 2019-01-31 14:19 | NUR ---
DR MORALES CAME TO SPEAK WITH PT'S SONS AND UPDATED THEM ON PT'S STATUS. THIS RN ALSO HAD DISCUSSION WITH SONS. DIRECTOR AUTOMOTIVE CONSULT REPLACED DUE TO NEW FINDINGS OF STROKE. SONS STATE PT LIVES WITH GIRLFRIEND WHO HAD STROKE WELL WHO WOULD BE UNABLE TO CARE FOR HIM. SONS' NUMBERS CONFIRMED SO THAT THEY CAN BE INVOLVED IN PLANNING. FAMILY AT BEDSIDE AT THIS TIME.
--- NOTE | 2019-01-31 14:49 | NUR ---
ECHOCARDIOGRAM COMPLETE
--- NOTE | 2019-01-31 18:19 | NUR ---
SHIFT SUMMARY: PT RESTING IN BED. FAMILY WERE AT BEDSIDE MOST OF THE AFTERNOON. FRIEND AT BEDSIDE AT THIS TIME. DR MORALES STATED SHE WOULD DISCUSS ANTICOAGULATION WITH CARDIOLOGY. HAVE NOT HEARD FURTHER ON THIS. BED ALARM ON AT THIS TIME.
--- NOTE | 2019-01-31 19:32 | NUR ---
PT HAD A PERIOD OF WAKEFULNESS WHERE HE GOT UP ON THE MATTRESS ON HIS HANDS AND KNEES AND WAS ATTEMPTING TO STAND. SON WAS TRYING TO HELP HIM GET COMFORTABLE AND ADJUSTED HIS FOOT WHICH THEN CAUSED HIM TO BE ABLE TO GET ON HIS FEET BUT HE WAS NOT STRONG ENOUGH TO STAND UP. STAFF HELPED HIM ONTO HIS BACK ON MATTRESS WHERE HE REMAINS AT THIS TIME, SLEEPING. NIGHT RN TAKEN INTO ROOM TO SEE PT'S CURRENT POSITION.
--- NOTE | 2019-01-31 19:36 | NUR ---
ASSUMED CARE . MALE FAMILY MEMBER PRESENT BUT LEAVING. QUESTIONS ANSWERED AND REASSURED. PER AGREEMENT PER MD , NO O2 NO TELE. SALINE LOCK INTACT AND NOT DISTURBED. ON ALL 4'S REPORTED BY STAFF AND ALLOWED TO ADJUST BED POSITION IN LYING SUPINE HEAD AT FOOT OF BED. FLIPS COVERS OVER HEAD AND NOTED CYCLIC BREATHING A KUSMAUL BREATHING AND THEN MOMENTARY PERIODS OF APNEA. SEEMS TO AWAKEN SELF WITH RAPID PANTING AND GROANING. OPENS EYES TO VERBAL W/ SLURRED INCOMPREHENSIBLE SPEECH . WILL NOT OPEN EYES TO COMMAND . WILL GRASP AT BEDDING BUT NOT FOLLOW COMMAND FOR HAND SQUEEZE. PUSHES FEET AGAINST STAFF HANDS BUT NOT TO COMMAND. IRRITABLE STIMULUS AND WITH DRAWS OR PUSHES ME AWAY. PIN POINT PUPILS REACT EQUALLY. EYE TRACKING SEEM CONJUGATE BUT NOT TRACKING TO COMMAND OR PURPOSFUL GLANCE AT ANYTHING. YELLS OUT A FEW SLURRED WORDS . BED ALARM ON AT ALL TIMES. NO APPARENT PAIN ISSUES. WILL NOT BE WEARING BEDSIDE OXIMETER PER MD AWARENESS AND IN AGREEMENT PER REPORT FROM DAY RN
--- NOTE | 2019-02-01 02:00 | NUR ---
SUDDENLY RESISTANT TRYING TO CLIMB OVER RAIL. PULLING AND PUSHING AGAINST STAFF. PULLED OUT IV. FLIPPIN ALL OVER BED. ATIVAN IV GIVEN . AND CALMING EFFECT. ADJUSTS SELF IN BED FOR COMFORT.CHAIR ALARM IN BED AND VERY AFFECTIVE.MORE CLARITY IN SPEECH WORDS YELLED OUT.
--- NOTE | 2019-02-01 06:06 | NUR ---
SHIFT SUMMARY. MORE IMPULSIVE AND AWAKE WITH FLAILING LIMBS AND AND NEED OF ATIVAN AND EFFECTIVE FOR SHORT TIME. NO SLICK NEED AT THIS TIME. NO ACUTE CHANGE FROM ABOVE . MORE OBSERVANT WHEN SPOKEN TO BUT WOULD NOT FOLLOW COMMANDS . MOVES ALL EXTREMITIES WELL. BOLTING FORWARD IN BED AND THEN FALLS OFF TO SLEEP/ ALARMS ON AT ALL TIMES.
--- NOTE | 2019-02-01 07:30 | NUR ---
ASSUMED CARE OF PT. PT IS CONFUSED, NOT FOLLOWING COMMANDS. PT IS CLIMBING OUT OF BED. BED ALARM IS ON.
--- NOTE | 2019-02-01 08:00 | NUR ---
PT IS SLEEPING AT THIS TIME.
--- NOTE | 2019-02-01 10:00 | NUR ---
PT IS AWAKE AT THIS TIME. ASKING FOR WATER. PT WAS ABLE TO TOLERATE VERY WELL.
--- NOTE | 2019-02-01 12:45 | NUR ---
PT WOKE UP WITH GARBLED SPEECH. NOTED TO BE PULLING CORDS, IVS. PT IS VERY STRONG. PT IS DISORIENTED. AFEBRILE. ATIVAN 2 MG WAS GIVEN.
--- NOTE | 2019-02-01 13:03 | NUR ---
Spiritual care visit conducted. Patient is lying in bed and minimally responsive. Patient doesn't say much just and only a few grunts. He was, however very clear in saying, "Yes" when I asked if I could pray for him. I gladly provided prayer. I will continue to remain available to patient and family.
--- NOTE | 2019-02-01 13:10 | NUR ---
DR. GONZALES AT BEDSIDE, UPDATED HER OF PT'S STATUS.
--- NOTE | 2019-02-01 15:14 | NUR ---
Pt visit this afternoon. Pt resting in bed with his eyes closed and has SLICK Vest on. Pt appears comfortable with no S/S of distress at this time. This RN did not disturb Pt and allowed for continued rest. Spoke with Dr Burgess and discussed case. Spoke with bedside EVER Barrientos and admission discharge rn Inocencia. Earlier today Pt became combative and wendy gomez was called. Palliative Care will F/U when Pt's son is visiting.
--- NOTE | 2019-02-01 17:37 | NUR ---
SHIFT SUMMARY: PT'S SISTER AND BROTHER AT BEDSIDE. UPDATED THEM OF PT'S STATUS. PT HAS BEEN TRYING TO GET OUT OF BED. ANSWERS CORRECTLY AT TIMES BUT MOST OF THE TIME PT IS CONFUSED. GARBLED SPEECH. AFEBRILE. DR. GONZALES WAS NOTIFIED REGARDING PT'S ELEVATED BLOOD PRESSURE. SHE WAS ALSO NOTIFIED REGARDING PT'S SLEEP APNEA AND THAT O2 SATURATION GO LOW 83% ON ROOM. ORDERS RECEIVED FROM DR. GONZALES.
--- NOTE | 2019-02-01 18:39 | NUR ---
Pt visit this evening. Family at [facility]. Pt's son Navi, brother Dick, and sister Janelle present during visit. Pt resting in bed and is awake briefly during visit. Speach garbled and difficult to understand. Pt's eyes are closed for much of the visit and appears to be resting comfortably. Answered questions and concerns. Educated on the possibility of Pt's quality of life changing. Discussed plan for OT, PT, and ST to evaluate and treat. Discussed the possibility of Pt needing jail care or 24 hour caregivers if Pt does not improve. Son Navi V/U. Family appears receptive of visit and is understanding it may take sometime before knowing if there will be any improvement. Navi reports he is prepared to make decisions if needed and will as recommended. Family expresses appreciation of visit. Palliative Care will remain available.
--- NOTE | 2019-02-01 19:57 | NUR ---
ASSUMED CARE OF PT AT 1900 WITH REPORT FROM GURDEEP CURTIS, PT LETHARGIC IN BED WITHLIMITED EYE CONTACT AND RESPONSE TO QUESTIONS. FOLLOWS SOME COMMANDS, APPEARS TO HAVE RIGHT FACIAL DROOP AND SLIGHT TONGUE DEVIATION. FAMILY ENETERS ROOM DURING INITIAL ASESSMENT, 6-7 PEOPLE. PATIENT SLURRING SPEECH, UNCLEAR WORDS, AND LETHARGIC, BUT IS MAKING SOME OF HIS NEEDS KNOWN. NOT PARTICULARLY AGITATED AT THIS TIME, WILL ASSESS SWALLOWING CAPABILITY IN ANTICIPATION OF ORAL BEDTIME MEDS. wILL CONTINUE TO MONITOR
--- NOTE | 2019-02-01 21:30 | NUR ---
PATIENT UNABLE TO TAKE ORAL MEDS - UNSAFE: NO GUARANTEE OF SWALLOW. SPEECH INCOMPREHENSIBLE, AGITATION INCREASING. WILL MEDICATE PER EMAR, IV MEDS ONLY. WILL CONTINUE TO MONITOR
--- NOTE | 2019-02-01 22:45 | NUR ---
PATIENT AGITATED, PULLING AT RESTRAINTS. IT APPEARED THAT PATIENT WANTED TO TURN TO HIS RIGHT SIDE. WHEN QUESTIONED, PATIENT GRUNTED AFFIRMATIVE. WHEN WRIST RESTRAINT WAS LOOSENED AND PATIENT ASSISTED TO RIGHT SIDE, HE PULLED OUT HIS IV BEFORE WRIST RESTRAINT COULD BE RE-SECURED. APPEARS TO BE ACCIDENTAL, FOR ONCE ON RT SIDE PATIENT IS RESTING PEACEFULLY, NO AGITATION, NO PULLING AT RESTRAINTS. WILL START NEW IV AND CONTINUE TO MONITOR. PT SLEEPING SOUNDLY, SNORING LIGHTLY
--- NOTE | 2019-02-01 23:22 | NUR ---
PATIENT IS SLEEPING PEACEFULLY, AND THERE IS CURRENTLY NO IV FOR HIM TO PULL OUT, WRIST RESTRAINT IS LEFT ATTACHED TO HIS LEFT WRIST, BUT NOT ATTACHED TO BED FRAME, ALLOWING FOR FREE MOVEMENT AT THE MOMENT
--- NOTE | 2019-02-02 04:02 | NUR ---
PATIENT PREFERS TO SLEEP ON RIGHT SIDE. ANY ATTEMPT TO PUT HIM ON HIS BACK, OR ON LEFT SIDE RESULTS IN HIS AGITATION. POSITIONED ON RIGHT SIDE, PATIENT SLEEPS AND DOES NOT NEED MEDICATED FOR AGITATION. NEW IV ESTABLISHED WITHOUT ISSUE. PATIENT SLEEPING ON RIGHT SIDE, POSY VEST AND SOFT WRIST RESTRANT ON LEFT WRIST IN PLACE. RESTRAINTS HAVE BEEN NECESSARY THE MOMENT PATIENT AWAKES, THIS SHIFT. WILL CONTINUE TO MONITOR
[2019-02-02 04:34] LABS: BASOPHILS ABSOLUTE AUTO 0.05 K/mm3 (0.00-0.23); BASOPHILS PERCENT AUTO 1 % (0-2); EOSINOPHILS ABSOLUTE AUTO 0.19 K/mm3 (0.00-0.68); EOSINOPHILS PERCENT AUTO 4 % (0-6); Hematocrit 47.5 % (37.0-53.0); Hemoglobin 14.9 g/dL (13.5-17.5); IMMATURE GRAN ABSOLUTE AUTO 0.02 K/mm3 (0.00-0.10); IMMATURE GRAN PERCENT AUTO 0 % (0-1); LYMPHOCYTES ABSOLUTE AUTO 1.34 K/mm3 (0.84-5.20); LYMPHOCYTES PERCENT AUTO 26 % (21-46); MONOCYTES ABSOLUTE AUTO 0.94 K/mm3 (0.16-1.47); MONOCYTES PERCENT AUTO 18 % (4-13); Mean Corpuscular HGB 28.7 pg (26.0-34.0); Mean Corpuscular HGB Conc 31.4 g/dL (31.5-36.5); Mean Corpuscular Volume 92 fL (80-100); Mean Platelet Volume 9.7 fL (9.1-12.4); NEUTROPHILS ABSOLUTE AUTO 2.69 K/mm3 (1.96-9.15); NEUTROPHILS PERCENT AUTO 51 % (41-73); Platelet Count 212 K/mm3 (150-400); RDW Coefficient Variation 13.2 % (11.7-14.2); RDW Standard Deviation 44.9 fL (35.1-46.3); Red Blood Cell Count 5.19 M/mm3 (4.30-5.90); White Blood Cell Count 5.23 K/mm3 (4.00-11.30)
[2019-02-02 04:54] LABS: Albumin, Blood 2.7 g/dL (3.4-5.0); Anion Gap 8 mmol/L (6-16); Blood Urea Nitrogen 32 mg/dL (8-24); Bun/Creatinine Ratio 26.7 (12.0-20.0); CO2, Blood 24 mmol/L (21-32); Calcium, Blood 9.2 mg/dL (8.5-10.1); Chloride, Blood 107 mmol/L (98-108); Glomerular Filtration Rate >60 (60-); Glucose, Blood 132 mg/dL (70-99); Phosphorus, Blood 4.6 mg/dL (2.5-4.9); Potassium, Blood 4.2 mmol/L (3.5-5.5); Sodium, Blood 139 mmol/L (136-145)
--- NOTE | 2019-02-02 06:06 | NUR ---
SHIFT SUMMARY NO CHANGES LAST FEW HOURS. PATIENT SLEEPING ON RIGHT SIDE; ANY OTHER POSITION RESULTS IN AGITATION/RESTLESSNESS UNTIL REPOSITIONED RIGHT SIDE. NONVIOLENT RESTRAINTS ARE STILL IN PLACE THEY ARE NOT RESTRICTING TO HIM (PATIENT IS NOT GROSSLY CHANGING POSITION) AND THEY WILL MOST LIKELY BE NEEDED WHEN PATIENT AWAKES OR IS AWOKEN. NO ATIVAN NOR ANY OTHER MEDICATION NEEDED SINCE 2220 HRS. PATIENT IS BREATHING WITHOUT EFFORT, MAKES SMALL ADJUSTMENTS IN ARM AND LEG POSITIONS, AND HIS TABBED BRIEF IS CLEAN AND DRY. WILL CONTINUE TO MONITOR AND WILL PASS CARE AND REPORT TO ONCOMING SHIFT AT 0700. BED IS LOCKED AND LOW, CALL LIGHT W/IN REACH.
--- NOTE | 2019-02-02 13:20 | NUR ---
UPDATE WAS ABLE TO GO SIGNIFICANT TIME WITHOUT MEDICATING WITH ATIVAN FOR DESTRUCTIVE BEHAVIORS BUT PT WAS NO LONGER DISTRACTABLE AND WAS PULLING AT LINES, CRAWLING OUT OF BED BETWEEN RAILS DESPITE SLICK AND L WRIST RESTRAINT. ATIVAN GIVEN W/ MINIMAL AFFECT. PT GRABBING AT STAFF, SELF, AND WHEN GRABBING SLICK, PHYSICALLY RIPPING IT. SECURITY AND MULTIPLE STAFF MEMBERS TO ROOM TO SAFELY CONTROL PT. PALLIATIVE CARE TO ROOM AND PLANS TO CALL HOSPITALIST TO UPDATE AND ADJUST MEDS.
--- NOTE | 2019-02-02 14:03 | NUR ---
Pt back and forth from sitting up in bed and lying in bed. Security and charge histotechnologist Jodi present. Mittens are being placed on Pt. Pt became significantly agitated and was attempting to pull his [place]ington Vest off and rip out his IV. Called and spoke with Pt's son Navi and reported updated. Engaged in therapeutic discussion regarding goals of care. Discussed the possibility of needing IV nutrition. Discussed speech therapey keeping Pt NPO due to being too somnolant. Discussed if Pt's condition does not improve would Pt want feeding tube. Navi expresses appreciation of phone call and reports he will visit Pt this evening. Spoke with Dr Wells and discussed case. Dr Wells will order IV nutrition and increase Pt's Zyprexa from daily at bed time to BID. Spoke with bedside EVER Gant and discussed case. Palliative Care will remain available.
--- NOTE | 2019-02-02 17:54 | NUR ---
SHIFT SUMMARY PT WAS RESTFUL THIS MORNING WITH EASY DISTRACTION. BUT IN AFTERNOON, UNCONSOLABLE. NEW RESTRAINTS PLACED AND HAS BEEN RESTLESS AND FIGHTING THEM UNTIL FAMILY CAME TO VISIT. PT BECAME CALM AND ATTEMPTING TO SPEAK THOUGH STILL MUMBLES AND VERY DIFFICULT TO UNDERSTAND. ALERT. FAMILY SPOON FEEDING WATER AND NO CHOKING, GARGLING, OR S/S OF CHOKING/ASPIRATING. CHOCOLATE ENSURE ATTEMPTED AND PT DOING VERY WELL WITH THIS.
--- NOTE | 2019-02-02 19:51 | NUR ---
ASSUMED CARE OF PATIENT AT 1900, PATIENT RESTING IN BED ON RIGHT SIDE, SLEEPING, LIGHT INTERMITTENT SNORE, FAMILY IN ROOM. FAMILY REPORTS PATIENT HAS JUST BEEN LAID TO SIDE POSTURE AND IS CALMING. ALL RESTRAINTS HAD BEEN UNATTACHED, THIS RN ATTACHED POSY VEST RESTRAINTS ONLY, PATIENT IS EXPECTED TO SLEEP IN SAME POSITION AND MAY BECOME AGITATED IF WRIST/HAND RESTRAINTS APPLIED AT THIS TIME. ALL VSS WNL. PATIENT STILL RESTLESS, NO COHERENT RESPONSE TO QUESTIONS AND VERBAL DIRECTIONS. WILL CONTINUE TO MONITOR
--- NOTE | 2019-02-02 22:11 | NUR ---
PATIENT HAS BEEN ATTEMPTING TO REMOVE RESTRAINTS AND REMOVE HIMSELF FROM BED FOR THE LAST TWO HOURS, REQUIRING 1-3 STAFF RO REPOSITION AND REPLACE RESTRAINTS. HE IS CURRENTLY RESTRAINED WITH POSY VEST, SOFT WRIST RESTRAINTS BILATERALLY, AND BILAT HAND MITTS. HE HAS BEEN ABLE TO REMOVE MITTS AND ONE SOFT CUFF, BUT IS LAYING SUPINE W/O MUCH ACTIVITY OTHER THAN RANDOM CALLING OUT. PATIENT DOES NOT ENSWER QUESTIONS, RESPONDS INTERMITTENTLY TO VOICE COMMANDS. WILL CONTINUE TO MONITOR.
--- NOTE | 2019-02-03 02:16 | NUR ---
PATIENT CONTINUES TO ATTEMPT TO REMOVE SELF FROM RESTRAINTS, AND FROM BED. BILAT MITTS REPLACED TWICE SINCE LAST NOTE. PATIENT CONTINUES TO SPEAK UNINTELLIGIBLY, RESPONDS FAIRLY WELL TO DIRECTIONS ABOUT BODY POSITIONING, BUT DOES NOT ACCEPT RATIONALE FOR RESTRAINTS, NOR FOR HOSPITALIZATION. ATTEMPTING TO MAINTAIN PATIENT COMFORT BEST POSSIBLE WITH SLIGHT REPOSITIONING, GENTLE SPEECH, AND FREQUENT ASSESSMENT OF SKIN UNDER RESTRAINTS.
[2019-02-03 03:54] LABS: BASOPHILS ABSOLUTE AUTO 0.07 K/mm3 (0.00-0.23); BASOPHILS PERCENT AUTO 1 % (0-2); EOSINOPHILS ABSOLUTE AUTO 0.15 K/mm3 (0.00-0.68); EOSINOPHILS PERCENT AUTO 3 % (0-6); Hematocrit 45.8 % (37.0-53.0); Hemoglobin 14.8 g/dL (13.5-17.5); IMMATURE GRAN ABSOLUTE AUTO 0.01 K/mm3 (0.00-0.10); IMMATURE GRAN PERCENT AUTO 0 % (0-1); LYMPHOCYTES ABSOLUTE AUTO 1.41 K/mm3 (0.84-5.20); LYMPHOCYTES PERCENT AUTO 24 % (21-46); MONOCYTES ABSOLUTE AUTO 1.06 K/mm3 (0.16-1.47); MONOCYTES PERCENT AUTO 18 % (4-13); Mean Corpuscular HGB 29.1 pg (26.0-34.0); Mean Corpuscular HGB Conc 32.3 g/dL (31.5-36.5); Mean Corpuscular Volume 90 fL (80-100); Mean Platelet Volume 9.6 fL (9.1-12.4); NEUTROPHILS ABSOLUTE AUTO 3.24 K/mm3 (1.96-9.15); NEUTROPHILS PERCENT AUTO 55 % (41-73); Platelet Count 228 K/mm3 (150-400); RDW Coefficient Variation 12.9 % (11.7-14.2); RDW Standard Deviation 42.5 fL (35.1-46.3); Red Blood Cell Count 5.09 M/mm3 (4.30-5.90); White Blood Cell Count 5.94 K/mm3 (4.00-11.30)
[2019-02-03 04:12] LABS: Albumin, Blood 2.8 g/dL (3.4-5.0); Anion Gap 6 mmol/L (6-16); Blood Urea Nitrogen 29 mg/dL (8-24); CO2, Blood 25 mmol/L (21-32); Chloride, Blood 108 mmol/L (98-108); Creatinine, Blood 1.16 mg/dL (0.60-1.20); Glomerular Filtration Rate >60 (60-); Glucose, Blood 213 mg/dL (70-99); Phosphorus, Blood 3.8 mg/dL (2.5-4.9); Potassium, Blood 4.1 mmol/L (3.5-5.5); Sodium, Blood 139 mmol/L (136-145)
--- NOTE | 2019-02-03 07:30 | NUR ---
ASSUMED CARE: PT LAYING IN BED, SLICK VEST AND ONE WRIST RESTRAINT ON. RESTING QUIETLY. BED ALARM ON. NO ACUTE NEEDS OR CONCERNS AT THIS TIME.
--- NOTE | 2019-02-03 07:34 | NUR ---
SHIFT SUMMARY WITH PREVIOUS NIGHT, PATIENT WAS MOST LIKELY TO SLEEP UNINTERUPTED AND LEAST LIKELY TO BE AGITATED IF ON HIS RIGHT SIDE, WITH MINIMUM RESTRAINTS TO KEEP HIM SAFE. PATIENT WAS MEDICATED PER EMAR FOR AGITATION TWICE THIS SHIFT, REPOSITIONED AND RESTRAINTS RE-APPLIED AT LEAST TWENTY TIMES BY ALL COMBINATIONS OF STAFF; HE SHOWS PROFICIENCY AT REMOVING THEM, OR REMOVING HIMSELF FROM THEM. SPEECH IS STILL GARBLED, BUT HE TENDED TO USE LONGER SENTENCES TOWARD THE END OF SHIFT THAN BEGINING. THIS SHIFT THERE WERE PERIODS WHERE THE PATIENT LISTENED AND RESPONDED APPROPRIATELY, BUT HE IS STILL NOT ABLE TO VERBALIZE HIS NEEDS, AND SOMETIMES IT IS CLEAR THAT HE BELIEVES HIS NEED IS TO LEAVE THE BED AND THE HOSPITAL. REPORT GIVEN TO ONCOMING SHIFT AT 0700, PATIENT SLEEPING IN BED ON RIGHT SIDE, BED LOCKED AND LOW, CALL LIGHT IN REACH, BED ALARM ON.
--- NOTE | 2019-02-03 11:33 | NUR ---
MOTOR VEHICLE ESCORT DRIVER IN ROOM AT THIS TIME. PT IN SLICK VEST ONLY. NO MEDICATIONS NEEDED AT THIS TIME. BED ALARM ON
--- NOTE | 2019-02-03 13:32 | NUR ---
PT FOUND SITTING UP IN BED GRABBING RAIL. WHEN ASKING PT IF HE NEEDED SOMETHING HE SAID HE WAS THIRSTY. BROUGHT IN ENSURE AND REMINDED HIM TO DRINK SLOWLY. SPEECH CAME BY AND WAS TOLD HE TOLERATED WELL. WHEN SHE ASKED ABOUT NPO SIGN IT WAS STATED THAT CARDIAC DIET WAS STILL ORDERED AND WAS TOLD IN REPORT THAT NPO WAS PER DISCRETION DUE TO LETHARGY. PT COMPLETED EVAL AND WAS PUT ON NECTAR THICK LIQUIDS WITH PUREE DIET. DIETITIAN IN ROOM WITH PT AND OT/PT WAITING TO EVALUATE. PT'S SON AND SISTER UPDATED ON PROGRESS. PALLIATIVE CARE AND DC PLANNING ALSO AWARE OF COGNITIVE STATUS AT THIS TIME.
--- NOTE | 2019-02-03 14:27 | NUR ---
DR GONZALES MADE AWARE OF PT'S IMPROVEMENT. PT/OT WALKING PATIENT IN REED AND FOLLOWING BEHIND WITH RECLINER.
--- NOTE | 2019-02-03 17:44 | NUR ---
SHIFT SUMMARY: PT SITTING UP IN BED EATING DINNER WITH FAMILY AT BEDSIDE ASSISTING. PT SPEAKING TO FAMILY BUT SPEECH IS SLURRED. AFTER WALKING WITH PT/OT IN REED HE FELL ASLEEP IN RECLINER AND ATTEMPTED TO GET UP SO WAS ASSISTED BACK TO BED. VSS AT THIS TIME. NO FURTHER CHANGES OR NEEDS NOTED.
--- NOTE | 2019-02-04 04:36 | NUR ---
SHIFT SUMMARY PT ALERT AND AT TIMES HAD SHORT COHERENT SENTENCES; ASKED FOR DRINKS AND STATED HE IS THIRSTY; PT GIVEN NECTAR THICK LIQUIDS; PT IN SLICK VEST FOR SAFETY; RADIAL AND PEDAL PULSES STRONG; PT OBEYS COMMANDS AND IS COMPLIANT W/ CARE; ON RA W/ O2 SATS >94; PT HAS SLEPT FOR A FEW HOURS IN BETWEEN INTERVENTIONS; VSS; CALL LIGHT IN REACH; BED IN LOWEST POSITION; BED ALARM ON; WILL CONTINUE TO MONITOR CLOSELY UNTIL HAND OFF TO DAY SHIFT RN
--- NOTE | 2019-02-04 07:30 | NUR ---
ASSUMED CARE: PT RESTING QUIETLY AT THIS TIME. SLICK VEST IN PLACE, BED ALARM ON. NO ACUTE NEEDS OR CONCERNS AT THIS TIME.
--- NOTE | 2019-02-04 15:20 | NUR ---
PT/OT CAME IN TO SEE PT. HE DRESSED HIMSELF AND TOOK 2 LAPS AROUND UNIT WITH FWW AND GAIT BELT. CURRENTLY SITTING UP IN RECLINER FACING OUT IN REED, INTERACTING WITH STAFF.
--- NOTE | 2019-02-04 17:35 | NUR ---
SHIFT SUMMARY PT HAS DONE REALLY WELL TODAY. MENTATION HAS CLEARED SIGNIFICANTLY THE DAY HAS GONE BY. HE IS ASKING QUESTIONS ABOUT HOW LONG HE HAS BEEN HERE AND EXACTLY WHAT HAS HAPPENED TO HIM. HE WAS EMOTIONAL DURING LUNCH AND STARTED TO CRY. PT HAS BEEN COMPLIANT W/CARE, WALKED WITH THERAPY AND WAS ABLE TO USE THE PHONE TO CALL HIS SON. PT IS STILL REQUIRING ASSISTANCE WITH FEEDINGS BUT HIS APPETITE IS GOOD AND HE IS EATING 80% OF MEALS ON AVERAGE. VSS, RESP UNLABORED, CALL LIGHT IN REACH. WCTM. PT'S SON IS AT THE BEDSIDE AT THIS TIME. BED ALARM IS ON FOR SAFETY.
--- NOTE | 2019-02-04 21:23 | NUR ---
ASSUMED CARE APPROXIMATELY 1900; PT ALERT; ORIENTED TO SELF; SMILING AND JOKING W/ VISITORS AND FAMILY; VSS; ON RA W/ O2 SATS >93; PT TAKING PO MEDS WELL W/ COACHING, ONE AT A TIME; EDUCATED FAMILY ON FOOD CHOICES AND NOT SNEAKING FOOD TO PT; EDUCATED ON ADA DIET AND NECTAR THICK LIQUIDS; FAMILY STATED UNDERSTANDING; CALL LIGHT IN REACH; BED IN LOWEST POSITION; BED ALARM ON; WILL CONTINUE TO MONITOR CLOSELY
--- NOTE | 2019-02-05 05:57 | NUR ---
SHIFT SUMMARY PT CONTINUES TO IMPROVE; ORIENTED TO SELF; SEVERAL CONVERSATIONS W/ THIS RN THROUGH NIGHT OF HX OF HOSPITAL EVENTS, HOW HE IS BEING CARED FOR AND HIS APPRECIATION FOR SONS AND STAFF; STATES HE IS PROUD OF HIS SONS; SENTENCE STRUCTURE CONTINUES TO IMPROVE; EXPRESSES CONCERN OF HOSPITAL BILL AND CONTINUED SERVICES; ASKS MANY TIMES WHEN HE CAN GO HOME; IMPULSIVE AT TIMES; BED ALARM ON FOR SAFETY; REDIRECTABLE; PT ON SATS >92; NO TELE IN PLACE; VSS; DENIES CHEST PAIN; CALL LIGHT IN REACH; BED IN LOWEST POSITION; WILL CONTINUE TO MONITOR CLOSELY UNTIL HAND OFF TO DAY SHIFT RN.
--- NOTE | 2019-02-05 10:22 | NUR ---
Pt visit this [facility] Bustamante from working with Pt at this time. Pt appears comfortable but does report mild SOB. Spoke with bedside RN Rosa Maria and discussed case. Rosa Maria reports Pt has shown come improvement and plan is for Pt to disharge to SNF most likely out of area. Palliative Care will remain available.
--- NOTE | 2019-02-05 20:54 | NUR ---
sitting up talking to family, knew where but thought today was friday, knew the time and president, took medication with , swallowed easily, no s/sx of choking, will continue to monitor and treat, worried about pet at home but aware of situation enought to know staying here was best for him for now.
--- NOTE | 2019-02-06 00:56 | NUR ---
After family left pt became more dispondent and focused on leaving, multiple times came in when bed alarm went off, tried redirection, medication, food, bowel care, remained focused on finding his mother, SPA CONCIERGE was in dpt and agreed to restraints for pt safety and to allow for continued medication. currently resting in bed but pulling on things ie pulled iv
--- NOTE | 2019-02-06 07:16 | NUR ---
since pt was restrained he has been resting and waking up, when awake he tries to get out of the restraints and bed but quickly falls asleep once he stops fighting, have tried various different distractions and treatments, he is on room air and has a new IV in his left arm, he was cooperative with if start ad tolerated the procedure very well, he allowed himself to be placed in restraints with no difficulty, currently he is talking to staff about how he will be getting to go home, when possible will share bsr with staff and pt, until that time will continue to monitor and treat.
--- NOTE | 2019-02-06 08:26 | NUR ---
WHEN THIS RN ARRIVED ON DUTY THIS AM PT HAD SOUNDED BED ALARM, PT HAD BEEN FOUND TO HAVE GOTTEN OUT OF SLICK VEST THAT REMAINED ZIPPED AND APPROPRIATELY SECURED TO BED. PT WAS CONFUSED, MUMBLING THAT WAS INTERMITTENTLY COHERENT. PT WAS ALERT, WHEN NAME CALLED PT STS "FUCK YOU I'M LEAVING" STS THAT HIS PLAN IS TO LEAVE "LIVE ASS NAKED AND CALL THE SECONDS INSPECTOR TO TAKE ME HOME" PT IS EDUCATED THAT LEAVING IS NOT IDEAL HE IS CONFUSED, IT IS RAINING AND COLD OUT, IT'S DARK, AND THAT POLICE WOULD RETURN HIM TO HOSPITAL THEY WOULD ALSO BE CONCERNED ABOUT HIS CONDITION. ATTEMPTS TO DRESS PT OR REDIRECT PT ARE MINIMALLY EFFECTIVE, AND WHEN PT DOES COMPLY AND SIT IN CHAIR OR BED HE ONLY REMAINS THERE FOR A MINUTE AT [facility]. PT STS THAT HE WANTS TO TALK TO HIS SONS, SON LONDON IS CALLED AND ASKED BY DR BLAND TO COME IN TO SPEAK WITH HIM. 2MG ATIVAN IVP ADMINSTERED, PT REMAINED CONFUSED THRASING ABOUT DURING MEDICATION ADMINISTRATION, PINCHING AT NURSING STAFF AND SECURITY HE IS BEING ADMINISTERED MEDS. DR COMBS GIVES V/O FOR 5MG HALDOL IV IF NEEDED, BUT ORDERED TO HOLD OFF UNTIL ABSOLUTELY NEEDED. PT AT THIS TIME TAKES A SEAT ON BED IS TALKING WITH DR BLAND, HE IS ABLE TO TELL DR BLAND HIS ADRESS BUT IS NOT ABLE TO ANSWER ALL QUESTIONS APPROPRIATELY. ATIVAN DOES NOT APPEAR TO HAVE ANY EFFECT OF PT'S BEHAVIOR REMAINS CONFUSED ATTEMPTING TO AMBULATE IN ROOM WITH WEAK UNSTEADY GAIT, PT IS REMINDED THAT HE IS A FALL RISK AND STS "FUCK YOU". PT DOES THEN RETURN TO BED, AGREES TO ALLOW SLICK PLACED THAT APPEARS TO FIT APPROPRAITELY, IS ZIPPED AND SECURED TO BED, PT IS IMMEIDATELY ATTEMPTING TO GET OUT OF SLICK. BILAT WRIST SOFT RESTRAINTS ARE APPLIED, PT THEN BEGINS TURNING SELF IN BED STS TO STAFF "I'M GOING TO KICK YOU" AND THEN DOES START KICKING AT STAFF APPEARS TO BE AIMING FOR STAFF'S FACE WITH EACH KICK. HALDOL WAS THEN ADMINISTERED PT IS BECOMING MORE CONFUSED AND MORE DANGEROUS TO SELF HE COULD INJURY SELF WHILE THRASHING, AND IS A DANGER TO STAFF HE IS ATTEMPTING TO CARRY OUT THREATS. PT CONTINUES WITH BEHAVIIOR HALDOL HAS NOT BEEN EFFECTIVE AFTER SEVERAL MINUTES AND PULLS SELF FREE FROM SOFT RESTRAINTS THEY WERE NOT STRONG ENOUGH TO HOLD PT'S ARMS. PT AT THIS TIME IS ATTEMPTING TO GET SELF ON BED RAIL AND HAS BECOME A GREATER DANGER TO SELF, DECISION WAS MADE AT THIS TIME TO APPLY TAT RESTRAINTS TO BILAT WRISTS. PT DOES SLOWLY BEGIN TO CALM DOWN AFTER APPLICATION, SON ARRIVES AND DR BLAND TO ROOM. ZAINAB CURTIS IS TO ROOM TO OBSERVE PT 1:1
--- NOTE | 2019-02-06 17:45 | NUR ---
HE ARRIVED TO [facility] FROM [facility] AT 1637 IN THE BED. VEST SLICK WAS ON. HE WAS SLEEPY BUT AROUSED EASILY AND WAS AGITATED. HE PUT HIS HANDS ON AND UNDER THE VEST AND WAS TRYING TO PULL IT OFF. IT FITS HIM WELL BUT HE WAS WORKING AT IT SO HARD AND SO CONFUSED, IT LOOKED DANGEROUS. BILATERAL WRIST RESTRAINTS ADDED FOR SAFETY. HE THEN STILL GOT HIMSELF SIDEWAYS IN THE BED SO I EVENTUALLY GAVE HIM 2 MG OF ATIVAN. HE HAS WANTED HIS BROTHER TO COME PICK HIM UP. VSS. CBG STABLE. EVEN THOUGH HE FIGHTS THE RESTRAINTS AND SWEARS, HE DOES NOT APPEAR ALERT ENOUGH TO TAKE IN PO AT THIS TIME.
[2019-02-07 05:58] LABS: Anion Gap 7 mmol/L (6-16); Blood Urea Nitrogen 28 mg/dL (8-24); Bun/Creatinine Ratio 25.7 (12.0-20.0); CO2, Blood 23 mmol/L (21-32); Calcium, Blood 9.1 mg/dL (8.5-10.1); Chloride, Blood 109 mmol/L (98-108); Creatinine, Blood 1.09 mg/dL (0.60-1.20); Glomerular Filtration Rate >60 (60-); Glucose, Blood 149 mg/dL (70-99); Potassium, Blood 4.8 mmol/L (3.5-5.5); Sodium, Blood 139 mmol/L (136-145)
--- NOTE | 2019-02-07 05:59 | NUR ---
SHIFT SUMMARY PT IS A 63 Y/O MALE, ADMITTED FOR ACUTE CHF. HE IS A&O X SELF ONLY. PT WAS LETHARGIC AT START OF SHIFT AND UNABLE TO TAKE PO MEDS, BUT BECAME AGITATED SEVERAL TIMES DURING THE SHIFT. HE WAS MEDICATED 3X DURING THE NIGHT WITH PRN ATIVAN FOR AGITATION AND ANXIETY. PER REPORT PT CAN BECOME COMBATIVE AT TIMES. NO S/S OR COMPLAINTS OF PAIN, NAUSEA OR SOB. VITAL SIGNS STABLE. PT REMAINED IN VEST AND BILATERAL WRIST RESTRAINTS TO FOR PT SAFETY TO PREVENT FALLS WELL PROTECTING PT LINES. PT IS INCONTINENT, TURN Q2H THOUGH PT TENDS TO MOVE AND ROLL IN BED BY HIMSELF. NO ACUTE CHANGES IN PT CONDITION NOTED DURING THE NIGHT. WILL CONTINUE TO MONITOR AND TREAT PER EMAR UNTIL HAND OFF TO DAY SHIFT RN.
--- NOTE | 2019-02-07 10:47 | NUR ---
HE BECAME AWARE ENOUGH TO BE FED OATMEAL AND AM MEDS IN THE OATMEAL. RESTRAINTS IN PLACE. HE TOLD ME HIS AND HIS LAST NAME. SPEECH IS A LITTLE MUMBLED.
--- NOTE | 2019-02-07 12:29 | NUR ---
HE HAS AMS AND INTERMITTENT DECREASED LOC. HE YELLS OUT AT TIMES. VEST SLICK AND BILAT. WRIST RESTRAINTS ON. I HAVE NOT NEEDED TO GIVE HIM ANY ATIVAN. A BANANA BAG WAS STARTED THIS AM. AROUND 1030, HE WAS ALERT ENOUGH TO TAKE HIS PO MEDS AND EAT HIS OATMEAL. I FED HIM. HE CONTINUES TO SLEEP INTERMITTENTLY. THE [employer] SUPPORT JUST FED HIM ALL HIS LUNCH. HIS SPEECH HAS BEEN A LITTLE GARBLED, BUT UNDERSTANDABLE. WILL UNTIE HIS LW IF I FEEL HE WILL NOT PULL OUT HIS IV.
--- NOTE | 2019-02-07 15:42 | NUR ---
HE IS RESTING ON HIS BACK IN BED WITH 4 PT RESTRAINTS AND A SLICK VEST ON. HE JUST WENT THROUGH A CODE RODRIGUEZ. NOTIFIED. ZYPREXA 5 MG GIVEN IM. HE IS RESPONDING WELL TO IT RESTING QUIETLY. PRIOR TO THE CODE RODRIGUEZ, ALL 4 SCU STAFF WERE WITH HIM TRYING TO KEEP HIM SAFE IN THE BED WITH A VEST SLICK ON AND BILATERAL WRIST RESTRAINTS. I AM WRITING THIS NOTE, HE IS AROUSED AND FIGHTING THE RESTRAINTS AGAIN. HE IS SWEARING AND SAYS HE NEEDS TO GET OUT OF HERE. WILL CONTINUE TO MONITOR.
--- NOTE | 2019-02-07 18:28 | NUR ---
HE HAS A SLICK VEST ON AND 4 PT SOFT RESTRAINTS. ONE CODE RODRIGUEZ WAS CALLED FOR HIM TODAY WHEN 4 OF US COULD NOT STOP HIM FROM WRIGGLING OUT OF HIS RESTRAINTS AND HURTING HIMSELF. HE REMAINED SAFE BUT RUINED HIS IV SITE. NEW SITE STARTED. BANANA BAG STILL INFUSING. HE ATE WELL TODAY INSPITE OF HIS AMS. A FRIEND VISITED AND LATER HIS SON LONDON VISITED. WE ARE TO ONLY GIVE INFO. TO HIS SONS OR BROTHER ABILIO. ZYPREXA IS EFFECTIVE, BUT NOT EFFECTIVE ENOUGH TO REMOVE RESTRAINTS. HE WAS COHERENT ENOUGH THIS EVENING THOUGH TO ASK ONE OF MY COWORKERS WHO HE KNEW LONG AGO AT THE [facility] ABOUT HIS COUSINS. IT WAS AN APPROPRIATE QUESTION.
--- NOTE | 2019-02-07 23:20 | NUR ---
Patient was becoming restless in bed, so he was assisted to get up and ambulate in the mcgill. His mood is very libile, but he was cooperative for a short time. He paced the hallway, and he seemed to require 1 person assist to keep him balanced. After walking back and forth in the hallway, he became agitated and tried to break a phone on the wall. He was directec back to bed, where he began trying to pull at his IV. He continues to require soft restraints now to keep him from pulling out the IV. Without soft restriants, he would need continuous, hands on physical restraint, so soft wrist and ankle restraints continue to be warrented for continuos fluid therapy and fall risk.
--- NOTE | 2019-02-08 01:46 | NUR ---
D/C restraints Patient's mentation seems to be clearing. He was cooperative with walking to the bathroom and was not agitated. No symptoms of withdrawal noted at this time. Will continue bed alarm and video monitor.
--- NOTE | 2019-02-08 04:25 | NUR ---
Shift Summary Patient slept intermittently throught the night. He has done well without restraints so far. Mentation seems to be clearing.
--- NOTE | 2019-02-08 14:01 | NUR ---
PT LEFT AMA AFTER NUMEROUS TRIES TO GET HIM TO STAY LONGER AND GET BETTER. PT WAS AO AND ABLE TO ANSWER QUESTIONS APPROPRIATELY. PT FELT VERY STRONGLY ABOUT LEAVING AND REFUSED TO STAY. PT ABLE TO AMBULATE AROUND ON HIS OWN. CALLED PT'S SON TO LET HIM KNOW HE WENT AMA. DR BLAND SPENT A LONG TIME IN PT'S ROOM TRYING TO TALK HIM INTO STAYING. PT WAS VERY ANXIOUS PRIOR TO DISCHARGE AND CUT IV WHILE WAITNG TO GET SIGNED OUT. PT POLITE AND KEEP THANKING EVERYONE FOR HIS CARE. PT WAS MADE AWARE OF THE DANGERS OF DISCHARGING AMA. PT ESCORTED TO [facility]IA [facility]IR WITH HIS PERSONAL BELONGINGS.
== END 2019-02-08 13:33 | disposition left against medical advice (07) | DRG 280 ==
LOC: ER 09:25 → MEDS 11:20 → PCU 11:20 → MEDS 01-27 19:02 → PCU 01-30 10:49 → MEDS 02-06 16:37
PROVIDERS: Emergency Medicine; Family Medicine; Hospitalist; Internal Medicine; Internal Medicine Cardiovascular Disease; Nurse Practitioner Acute Care; ADMIT Internal Medicine
PROC: 4A023N8 Measurement of Cardiac Sampling and Pressure, Bilateral, Percutaneous Approach (ICD-10-PCS; principal; 2019-01-25)
PROC: B2111ZZ Fluoroscopy of Multiple Coronary Arteries using Low Osmolar Contrast (ICD-10-PCS; 2019-01-25)
DX: I21.4 Non-ST elevation (NSTEMI) myocardial infarction (principal); I50.21 Acute systolic (congestive) heart failure; I63.9 Cerebral infarction, unspecified; I13.0 Hypertensive heart and chronic kidney disease with heart failure and stage 1 through stage 4 chronic kidney disease, or unspecified chronic kidney disease; E87.2 Acidosis; E87.1 Hypo-osmolality and hyponatremia; F10.239 Alcohol dependence with withdrawal, unspecified; N17.9 Acute kidney failure, unspecified; N18.4 Chronic kidney disease, stage 4 (severe); I42.7 Cardiomyopathy due to drug and external agent; F17.210 Nicotine dependence, cigarettes, uncomplicated; E78.5 Hyperlipidemia, unspecified; E66.9 Obesity, unspecified; I27.20 Pulmonary hypertension, unspecified; I08.1 Rheumatic disorders of both mitral and tricuspid valves; I25.10 Atherosclerotic heart disease of native coronary artery without angina pectoris; F15.10 Other stimulant abuse, uncomplicated; Z68.28 Body mass index [BMI] 28.0-28.9, adult
CPT/HCPCS: 36415; 36600; 70450; 70551; 74022; 80048; 80053; 80061; 80069; 81001; 82140; 82550; 82607; 82746; 82803; 82947; 83036; 83690; 83735; 83880; 84132; 84484; 85025; 85027; 85379; 85610; 85651; 86592; 86704; 86708; 86803; 87340; 87389; 92526; 92610; 93005; 93010; 93306; 93308; 93321; 93458; 93460; 93880; 94660; 94762; 95819; 97110; 97116; 97162; 97166; 97530; 97535; 99152; 99153; 99285-25; A9270; C1769; C1894; G0480; J0360; J1630; J1644; J1650; J1940; J2060; J2250; J2310; J3010; J3411; J3475; J7030; J7042; Q9967

== ENCOUNTER 2019-02-27 09:52 | Emergency (ER) | payer OTHER ==
[~2019-02-27] VITALS: Ht 172.7 cm; Wt 77.1 kg
[2019-02-27 11:00] LABS: Calcium, Ionized (POC) 1.19 mmol/L (1.10-1.46); Chloride (POC) 101 mmol/L (98-108); Creatinine (POC) 1.2 mg/dL (0.8-1.3); Glucose (ISTAT POC) 166 mg/dL (70-99); Hemoglobin (POC) 13.6 g/dL (13.5-17.5); Potassium (POC) 4.4 mmol/L (3.5-5.5); Sodium (POC) 137 mmol/L (135-148); Total CO2 (POC) 28 mmol/L (21-32)
[2019-02-27] MEDS ORDERED: ATOR80 PO (11:00)
[2019-02-27] MEDS ORDERED: Flomax0.4 MG PO (11:00)
[2019-02-27] MEDS ORDERED: Toprol Xl25 MG PO (11:00)
[2019-02-27] MEDS ORDERED: TORSE20 PO (11:00)
[2019-02-27] MEDS ORDERED: Isosorbide Mono30 MG PO (11:00)
[2019-02-27] MEDS ORDERED: ENTRESTO 24 MG1 EACH PO (11:00)
== END 2019-02-27 11:33 | disposition home or self-care (01) ==
LOC: ER 09:52
PROVIDERS: Emergency Medicine
DX: R53.1 Weakness (principal); F10.20 Alcohol dependence, uncomplicated; Z76.0 Encounter for issue of repeat prescription; I50.9 Heart failure, unspecified; Z91.14 Patient's other noncompliance with medication regimen
CPT/HCPCS: 80047; 85014; 99284